=== PATIENT | female | born 1990 | race Caucasian/White ===

== ENCOUNTER 2020-12-07 10:19 | Emergency (ER) | payer MEDICARE, MEDICAID, SELFPAY ==
[2020-12-07 10:35] VITALS: BP 134/78; PULSE 113; RESP 18; TEMP 37.7; O2SAT 98; BMI 46.0
--- NOTE | 2020-12-07 10:44 | W.ED.URI ---
Documented by User: AIDA Persaud 12/07/20 16:27 HPI - URI/Sore Throat General: Chief Complaint: Upper Respiratory Infection Stated Complaint: Cough, Fever, SOB Time Seen by Provider: 12/07/20 10:24 Source: patient and family (sister) Mode of arrival: ambulatory Limitations: other (mentally disabled ) History of Present Illness: HPI Narrative: Patient is a 30-year-old female presents to ED today along with her sister for complaints of cough, congestion, fevers, fatigue, tiredness, decreased appetite, and headache. The sister states she is not very familiar with the patient as the patient is mentally disabled and lives with her mother. Sister tells me the mother unfortunately yesterday of unknown causes. Sister does think the mother was sick as she told her yesterday she did not feel well. The sister tells me that their mother did everything for her including feeding, bathing, administering medications, etc. MD elicited complaint: fever, cough and nasal congestion Onset (ago): day(s) Able to tolerate fluids by mouth: Yes Context: sick contacts Associated symptoms: Reports fever(s), headache(s) and nasal congestion; Deny abdominal pain, chest pain, diarrhea, ear or mastoid pain, nausea or vomiting Review of Systems Const: Reports: fever(s), body aches, change in appetite and fatigue Eyes: Denies: change in vision or blurry vision ENMT: Reports: nasal discharge and nasal congestion; Denies: throat pain, odynophagia, ear or mastoid pain or ear discharge Card: Reports: lightheadedness and pre-syncope; Denies: chest pain, palpitations, irregular heart rhythm, edema or syncope Resp: Reports: dyspnea, non-productive cough and chest congestion; Denies: wheezing or hemoptysis GI: Denies: abdominal pain, nausea, vomiting or diarrhea : Denies: flank pain or dysuria Musc: Denies: neck pain, back pain, extremity pain or joint pain Skin/Breast: Denies: rash Neuro: Reports: headache(s) and dizziness; Denies: numbness in extremities, weakness in extremities or sensory changes Physical Exam Const: COMMON NORMALS: no acute distress and alert EXAM LIMITATIONS: other limitations (patient is mentally disabled ) GENERAL APPEARANCE: cooperative NUTRITIONAL APPEARANCE: obese and other (deconditioned ) ORIENTATION/CONSCIOUSNESS: Yes awake and Yes oriented to person OTHER: at mental baseline per sister HENMT: COMMON NORMALS: normocephalic, atraumatic and Normal external nose present HEAD & SCALP: normal to inspection, normocephalic and atraumatic FACE & SINUS: sinus tenderness NOSE: Normal external nose present OTHER: patient has a severe case of head lice with literally thousands if not millions of nits and live mites; sister states patient was living in horrible conditions and has not bathed or washed her hair in months Eye: GENERAL EYE: appearance normal, both eyes and all related structures Neck/C-Spine: COMMON NORMALS: full ROM, no lymphadenopathy and no meningeal signs Chest: COMMONS NORMALS: normal inspection of the chest and normal palpation of entire chest wall Resp: COMMON NORMALS: normal respiratory effort and clear to auscultation bilaterally AUSCULTATION: clear to auscultation bilaterally Cardio: COMMON NORMALS: regular rhythm RATE: tachycardic RHYTHM: regular rhythm GI: COMMON NORMALS: Normal to inspection, nondistended, normoactive bowel sounds present, Soft to palpation, non-tender, No hepatosplenomegaly present and no masses PALPATION: Yes Soft to palpation and Yes No hepatosplenomegaly present Extremity: COMMON NORMALS: normal to inspection Neuro: KITA COMA SCALE: document GCS findings Pyote coma scale eye opening: Spontaneous Pyote coma scale verbal response: Orientated Pyote coma scale motor response: Obey commands Pyote coma scale total score: 15 COMMON NORMALS: moves all extremities, no focal motor deficits and no sensory deficits noted SENSORIUM/ORIENTATION: Yes alert and Yes oriented to person MENINGEAL SIGNS: Yes no meningeal signs Skin: COMMON NORMALS: no rashes or lesions noted GENERAL SKIN EXAM: no rashes or lesions noted Course Vital Signs: Vital signs: Vital Signs Temperature 100 F H 12/07/20 10:35 Pulse Rate 93 12/07/20 17:01 Respiratory Rate 18 12/07/20 17:01 Blood Pressure 131/62 12/07/20 17:01 Pulse Oximetry 91 12/07/20 17:01 MDM - URI/Sore Throat MDM Narrative: Medical decision making narrative: Patient is a 30-year-old female here with her sister who now has legal guardianship over her after her mother passed. Patient herself is mentally delayed. On exam she is in no acute distress. She has no labored breathing. She did arrive mildly tachycardic with a low-grade fever and mildly hypoxic at 91% thus labs/COVID testing were initially obtained. She is COVID positive. Labs are consistent with her COVID diagnosis and overall are not exceptionally worrisome. CXR showing groundglass densities consistent with COVID. D-dimer was slightly elevated at 1.2 thus CTA imaging obtained which did not show a PE. I have re-evaluated patient countless times and she never appears in any acute distress. Her tachycardia has resolved. She is not tachypneic. She is satting at 95% on RA. Home O2 evaluation completed and patient does not qualify. I think at this time it is reasonable to send patient home with outpatient treatment for COVID. She will be placed on oral dexamethasone. She is set up for MCA infusion tomorrow. She will also be given treatment for her head lice. Lab Data: Labs: Lab Results 12/07/20 12/07/20 12/07/20 11:15 11:15 11:15 WBC 3.9 10^3/uL L 10^ 3/uL (4.0-10.0) RBC 3.92 10^6/uL L 10 ^6/uL (4.1-5.3) Hgb 10.3 g/dL L g/dL (11.5-15.3) Hct 32.9 % L % (37.0-47.0) MCV 83.9 fl fl (81-99) MCH 26.3 pg L pg (28.0-34.0) MCHC 31.3 g/dL g/dL (30.0-36.0) RDW 13.3 % % (12.1-15.1) Plt Count 173 10^3/cmm 10^3 /cmm (130-400) MPV 10.4 fL fL (7.4-10.4) Neut % (Auto) 79.7 % % Lymph % (Auto) 9.6 % % [place] % (Auto) 9.6 % % Eos % (Auto) 0.3 % % Baso % (Auto) 0.3 % % Neut # (Auto) 3.14 10^3/uL 10^3 /uL (1.8-7.7) Lymph # (Auto) 0.4 10^3/uL L 10^ 3/uL (0.8-4.8) [place] # (Auto) 0.4 10^3/uL 10^3/ uL (0.2-0.9) Eos # (Auto) 0.0 10^3/uL 10^3/ uL (0.0-0.8) Baso # (Auto) 0.0 10^3/uL 10^3/ uL (0.0-0.1) Nucleated RBC % (a uto) 0 % % Nucleated RBCs # 0.0 /100WBC /100W BC PT INR APTT Fibrinogen D-Dimer Specimen Type Sample Site ABG pH ABG pCO2 ABG pO2 ABG HCO3 ABG O2 Saturation ABG Base Excess Anthony Test A-a O2 Gradient Hematocrit Hgb O2 Saturation Carboxyhemoglobin Methemoglobin Total Hemoglobin Ionized Calcium O2 Delivery Device FiO2 [employer] ID Sodium 137 mmol/L mmol/L (136-145) Potassium 3.0 mmol/L L mmol /L (3.5-5.1) Chloride 98 mmol/L mmol/L (98-107) Carbon Dioxide 28 mmol/L mmol/L (22-29) Anion Gap 14.0 (5-19) BUN 6 mg/dL mg/dL (6-20) Creatinine 0.6 mg/dL mg/dL (0.5-0.9) GFR Calculation 119.0 mL/min mL/m in (90-130) Glucose 111 mg/dL mg/dL (65-115) Calculated Osmolal ity 282 mOsm/kg L mOs m/kg (285-295) Lactic Acid 2.8 mmol/L H mmol /L (0.5-2.2) Calcium 8.0 mg/dL L mg/dL (8.5-10.5) Ferritin Total Bilirubin 0.2 mg/dL mg/dL (0.15-1.2) AST 38 U/L H U/L (0-32) ALT 16 U/L U/L (0-33) Alkaline Phosphata se 68 IU/L IU/L (35-105) C-Reactive Protein 61.1 mg/L H mg/L (0.0-4.9) Total Protein 6.3 g/dL L g/dL (6.6-8.7) Albumin 3.5 g/dL g/dL (3.5-5.2) Globulin 2.8 g/dL g/dL (1.3-4.6) Procalcitonin 0.12 ng/mL ng/mL (0-0.5) HCG, Qual Urine Color Urine Appearance Urine pH Ur Specific Gravit y Urine Protein Urine Glucose (UA) Urine Ketones Urine Blood Urine Nitrate Urine Bilirubin Urine Urobilinogen Ur Leukocyte Sharmila ase Influenza Type A A g Influenza Type B A g SARS-CoV-2 Ag (Rap id) 12/07/20 12/07/20 12/07/20 11:15 11:17 11:17 WBC RBC Hgb Hct MCV MCH MCHC RDW Plt Count MPV Neut % (Auto) Lymph % (Auto) [place] % (Auto) Eos % (Auto) Baso % (Auto) Neut # (Auto) Lymph # (Auto) [place] # (Auto) Eos # (Auto) Baso # (Auto) Nucleated RBC % (a uto) Nucleated RBCs # PT INR APTT Fibrinogen D-Dimer 1.22 ug/mIFEU H u g/mIFEU (0-0.59) Specimen Type Sample Site ABG pH ABG pCO2 ABG pO2 ABG HCO3 ABG O2 Saturation ABG Base Excess Anthony Test A-a O2 Gradient Hematocrit Hgb O2 Saturation Carboxyhemoglobin Methemoglobin Total Hemoglobin Ionized Calcium O2 Delivery Device FiO2 [employer] ID Sodium Potassium Chloride Carbon Dioxide Anion Gap BUN Creatinine GFR Calculation Glucose Calculated Osmolal ity Lactic Acid Calcium Ferritin Total Bilirubin AST ALT Alkaline Phosphata se C-Reactive Protein Total Protein Albumin Globulin Procalcitonin HCG, Qual Negative (Negative) Urine Color Urine Appearance Urine pH Ur Specific Gravit y Urine Protein Urine Glucose (UA) Urine Ketones Urine Blood Urine Nitrate Urine Bilirubin Urine Urobilinogen Ur Leukocyte Sharmila ase Influenza Type A A g Influenza Type B A g SARS-CoV-2 Ag (Rap id) Positive H (Negative) 12/07/20 12/07/20 12/07/20 11:17 11:17 11:41 WBC RBC Hgb Hct MCV MCH MCHC RDW Plt Count MPV Neut % (Auto) Lymph % (Auto) [place] % (Auto) Eos % (Auto) Baso % (Auto) Neut # (Auto) Lymph # (Auto) [place] # (Auto) Eos # (Auto) Baso # (Auto) Nucleated RBC % (a uto) Nucleated RBCs # PT 13.50 SECONDS SEC ONDS (12.1-14.9) INR 1.00 (0.8-1.2) APTT 32.4 SECONDS SECO NDS (23.9-36.7) Fibrinogen 488 mg/dL mg/dL (174-498) D-Dimer Specimen Type Arterial Sample Site Radial, right ABG pH 7.46 H (7.35-7.45) ABG pCO2 40.2 mmHg mmHg (35-45) ABG pO2 53.8 mmHg L mmHg (80.0-100.0) ABG HCO3 28.5 mmol/L H mmo l/L (22-26) ABG O2 Saturation 91.7 ABG Base Excess 4.3 mmol/L H mmol /L (-2.0-2.0) Anthony Test Pos A-a O2 Gradient 6.1 mmHg mmHg (5-10) Hematocrit 31.1 % L % (37-47) Hgb O2 Saturation 90.5 % L % (95-100) Carboxyhemoglobin 0.9 %THgb %THgb (0.4-20.1) Methemoglobin 0.4 % % (0.4-1.5) Total Hemoglobin 10.1 g/dL L g/dL (12-16) Ionized Calcium 1.1 mmol/L mmol/L (1.1-1.4) O2 Delivery Device Room air FiO2 21.0 % % [employer] ID glc Sodium 136.0 mmol/L mmol /L (131-143) Potassium 3.0 mmol/L L mmol /L (3.5-5.0) Chloride Carbon Dioxide Anion Gap BUN Creatinine GFR Calculation Glucose 133.0 mg/dL H mg/ dL (70-115) Calculated Osmolal ity Lactic Acid Calcium Ferritin 214 ng/mL H ng/mL (15-150) Total Bilirubin AST ALT Alkaline Phosphata se C-Reactive Protein Total Protein Albumin Globulin Procalcitonin HCG, Qual Urine Color Urine Appearance Urine pH Ur Specific Gravit y Urine Protein Urine Glucose (UA) Urine Ketones Urine Blood Urine Nitrate Urine Bilirubin Urine Urobilinogen Ur Leukocyte Sharmila ase Influenza Type A A g Influenza Type B A g SARS-CoV-2 Ag (Rap id) 12/07/20 12/07/20 12:01 12:29 WBC RBC Hgb Hct MCV MCH MCHC RDW Plt Count MPV Neut % (Auto) Lymph % (Auto) [place] % (Auto) Eos % (Auto) Baso % (Auto) Neut # (Auto) Lymph # (Auto) [place] # (Auto) Eos # (Auto) Baso # (Auto) Nucleated RBC % (a uto) Nucleated RBCs # PT INR APTT Fibrinogen D-Dimer Specimen Type Sample Site ABG pH ABG pCO2 ABG pO2 ABG HCO3 ABG O2 Saturation ABG Base Excess Anthony Test A-a O2 Gradient Hematocrit Hgb O2 Saturation Carboxyhemoglobin Methemoglobin Total Hemoglobin Ionized Calcium O2 Delivery Device FiO2 [employer] ID Sodium Potassium Chloride Carbon Dioxide Anion Gap BUN Creatinine GFR Calculation Glucose Calculated Osmolal ity Lactic Acid Calcium Ferritin Total Bilirubin AST ALT Alkaline Phosphata se C-Reactive Protein Total Protein Albumin Globulin Procalcitonin HCG, Qual Urine Color Yellow (Yellow) Urine Appearance Clear (CLEAR) Urine pH 7 (5-7) Ur Specific Gravit y 1.010 (1.005-1.030) Urine Protein Neg (Negative) Urine Glucose (UA) Norm (Normal) Urine Ketones Negative (Negative) Urine Blood Neg (Negative) Urine Nitrate Negative (Negative) Urine Bilirubin Neg (Negative) Urine Urobilinogen Norm mg/dL mg/dL (Negative) Ur Leukocyte Sharmila ase Negative (Negative) Influenza Type A A g Negative (Negative) Influenza Type B A g Negative (Negative) SARS-CoV-2 Ag (Rap id) Imaging Data^: CXR: Radiologist's impression: [address] [id number] ReportSigned Patient: Flex Alexander #: [id number]: [id number]#:[id number]/Sex: 30 / FADM Date: 12/07/20Loc: [facility]/Bed:Attending Dr: Ordering Provider/Ordering MD: Annalise Sorto Date of Service: 12/07/20 Procedure(s): XR chest 1V portable [id number] Accession Number(s): [id number] Report Number: [id number] WS: [id number] XR chest 1V portable [id number] REASON FOR EXAM: URI/fever FINDINGS: Heart and mediastinum are within normal limits. Patchy groundglass density lung opacities in the lower lung roman predominating on the left. Similar findings in the left midlung field peripherally. No significant abnormality of the bony thorax. XR/XR chest 1V portable [id number] IMPRESSION: Infiltrates of unknown chronicity but compatible with acute pneumonitis. Dictated By:Antoni Rosado Jr MDSigned By:Antoni Rosado Jr MDSigned Date/Time:12/07/20 1110DD/ 1108 CTA Chest: Radiologist's impression: [facility] [address] [place] [address] CT Scan Report Signed Patient: Sheridan Alexander Unit #: [id number] : 1990 Age/Sex: 30 / F ADM Date: 12/07/20 Loc: ER Room/Bed: Attending Dr: Ordering Provider/Ordering MD: Annalise Sorto Date of Service: 12/07/20 Procedure(s): CT angio chest PE protcl 30600 Accession Number(s): [id number] Report Number: [id number] WS: [id number] CTA OF THE CHEST WITH PULMONARY EMBOLISM PROTOCOL TECHNIQUE: High-resolution contrast enhanced CTA of the chest with coronal and sagittal reformatted images with pulmonary embolism protocol. MIP images are also reviewed. CLINICAL INFORMATION: suspected COVID, tachycardia, elevated d dimer COMPARISON: None. DLP: 587.[address] scans at [facility] use at least one of these dose optimization techniques: automated exposure control; mA and/or kV adjustment per patient size (includes targeted exams where dose is matched to clinical indication); or iterative reconstruction. FINDINGS: Proximal main pulmonary arteries are normal. Normal segmental pulmonary arteries. Distal most pulmonary arteries not well evaluated due to breathing artifact. No evidence of pulmonary embolus. Normal caliber thoracic aorta. Diffuse bilateral patchy groundglass infiltrates likely due to COVID 19 Pneumonia. This is worse in the left upper lobe, perihilar regions, and both lower lobes. No pleural fluid. Bilateral perihilar bronchovascular thickening. Bilateral perihilar and peribronchial lymphadenopathy likely reactive. Adrenal glands are normal. Small esophageal hiatal hernia. IMPRESSION: 1. No evidence of pulmonary embolus. Low lung volumes. 2. Diffuse bilateral ground glass infiltrates likely due to COVID 19 Pneumonia 3. Bronchovascular thickening with reactive hilar and peribronchial lymphadenopathy. Dictated By: Rocco Torres MD Signed By: Rocco Torres MD Signed Date/Time: 12/07/20 1514 DD/ 1507 Discharge Plan Discharge Patient Disposition: Home Clinical Impression: COVID-19, Head lice Condition: Stable Prescriptions: New permethrin 5 % cream 1 applic topical Q14D Qty: 60 RF: 1 dexamethasone 6 mg tablet 6 mg PO DAILY Qty: 6 RF: 0 Discharge Orders: Discharge ED (Routine); Ordered 12/07/20 Ordered By: Annalise Sorto Patient Instructions: Head Lice Infestation - Adult, COVID-19 (Coronavirus Disease 2019) (ED), How to Recover from COVID-19 at Home (ED) Activity Restrictions/Additional Instructions: As we discussed she is set up for her monoclonal antibody infusion tomorrow at 10 AM. You need to return to the emergency department anytime for increased work of breathing, labored rest breathing, difficulty breathing, severe chest pain, clinical deterioration, inability to care for herself, or any other concerns you may have. You have been given strict instructions on treating her head lice infestation. Coding Level of Care Code ED Manager Telecom for Liane Fwd Exam Comprehensive Monoclonal Antibody - ED Inclusion/Exclusion Criteria age >/= 12 years, weight >/= 40kg /88lbs, symptom onset less than 10 days ago and + direct Sars-Cov-2 test less than 7-10 days ago obesity (BMI >25 or 85%til for age), neurodevelopmental diease and disability (mental) not requiring hospitalization, not requiring oxygen (if not chronically on oxygen) and no increase oxygen requirement (if chronically on oxygen) Patient education patient/family/caregiver received/reviewed fact sheet, Emergency Use Authorization/unapproved drug status discussed with patient/family/caregiver, alternatives to this treatment discussed with patient/family/caregiver, risks and benefits of medication reviewed with patient/family/caregiver, patient/family/caregiver given opportunity for questions, which were answered and patient consents to receiving Monoclonal Antibody Treatment Plan for treatment Meets criteria for Monoclonal Antibody infusion Date of symptom(s) onset: 12/04/20 Where are the positive COVID test results, if positive?: Resulted in [facility] Ordering Monoclonal Antibody infusion for another day (tomorrow 10AM) Documented by User: Pantera Wynne DO 12/07/20 17:22 HPI - URI/Sore Throat General: Chief Complaint: Upper Respiratory Infection Stated Complaint: Cough, Fever, SOB Time Seen by Provider: 12/07/20 10:24 Course Vital Signs: Vital signs: Vital Signs Temperature 100 F H 12/07/20 10:35 Pulse Rate 93 12/07/20 17:01 Respiratory Rate 18 12/07/20 17:01 Blood Pressure 131/62 12/07/20 17:01 Pulse Oximetry 91 12/07/20 17:01 MDM - URI/Sore Throat MDM Narrative: Medical decision making narrative: Chart reviewed agree with assessment and plan Lab Data: Labs: Lab Results 12/07/20 12/07/20 12/07/20 11:15 11:15 11:15 WBC 3.9 10^3/uL L 10^ 3/uL (4.0-10.0) RBC 3.92 10^6/uL L 10 ^6/uL (4.1-5.3) Hgb 10.3 g/dL L g/dL (11.5-15.3) Hct 32.9 % L % (37.0-47.0) MCV 83.9 fl fl (81-99) MCH 26.3 pg L pg (28.0-34.0) MCHC 31.3 g/dL g/dL (30.0-36.0) RDW 13.3 % % (12.1-15.1) Plt Count 173 10^3/cmm 10^3 /cmm (130-400) MPV 10.4 fL fL (7.4-10.4) Neut % (Auto) 79.7 % % Lymph % (Auto) 9.6 % % [place] % (Auto) 9.6 % % Eos % (Auto) 0.3 % % Baso % (Auto) 0.3 % % Neut # (Auto) 3.14 10^3/uL 10^3 /uL (1.8-7.7) Lymph # (Auto) 0.4 10^3/uL L 10^ 3/uL (0.8-4.8) [place] # (Auto) 0.4 10^3/uL 10^3/ uL (0.2-0.9) Eos # (Auto) 0.0 10^3/uL 10^3/ uL (0.0-0.8) Baso # (Auto) 0.0 10^3/uL 10^3/ uL (0.0-0.1) Nucleated RBC % (a uto) 0 % % Nucleated RBCs # 0.0 /100WBC /100W BC PT INR APTT Fibrinogen D-Dimer Specimen Type Sample Site ABG pH ABG pCO2 ABG pO2 ABG HCO3 ABG O2 Saturation ABG Base Excess Anthony Test A-a O2 Gradient Hematocrit Hgb O2 Saturation Carboxyhemoglobin Methemoglobin Total Hemoglobin Ionized Calcium O2 Delivery Device FiO2 [employer] ID Sodium 137 mmol/L mmol/L (136-145) Potassium 3.0 mmol/L L mmol /L (3.5-5.1) Chloride 98 mmol/L mmol/L (98-107) Carbon Dioxide 28 mmol/L mmol/L (22-29) Anion Gap 14.0 (5-19) BUN 6 mg/dL mg/dL (6-20) Creatinine 0.6 mg/dL mg/dL (0.5-0.9) GFR Calculation 119.0 mL/min mL/m in (90-130) Glucose 111 mg/dL mg/dL (65-115) Calculated Osmolal ity 282 mOsm/kg L mOs m/kg (285-295) Lactic Acid 2.8 mmol/L H mmol /L (0.5-2.2) Calcium 8.0 mg/dL L mg/dL (8.5-10.5) Ferritin Total Bilirubin 0.2 mg/dL mg/dL (0.15-1.2) AST 38 U/L H U/L (0-32) ALT 16 U/L U/L (0-33) Alkaline Phosphata se 68 IU/L IU/L (35-105) C-Reactive Protein 61.1 mg/L H mg/L (0.0-4.9) Total Protein 6.3 g/dL L g/dL (6.6-8.7) Albumin 3.5 g/dL g/dL (3.5-5.2) Globulin 2.8 g/dL g/dL (1.3-4.6) Procalcitonin 0.12 ng/mL ng/mL (0-0.5) HCG, Qual Urine Color Urine Appearance Urine pH Ur Specific Gravit y Urine Protein Urine Glucose (UA) Urine Ketones Urine Blood Urine Nitrate Urine Bilirubin Urine Urobilinogen Ur Leukocyte Sharmila ase Influenza Type A A g Influenza Type B A g SARS-CoV-2 Ag (Rap id) 12/07/20 12/07/20 12/07/20 11:15 11:17 11:17 WBC RBC Hgb Hct MCV MCH MCHC RDW Plt Count MPV Neut % (Auto) Lymph % (Auto) [place] % (Auto) Eos % (Auto) Baso % (Auto) Neut # (Auto) Lymph # (Auto) [place] # (Auto) Eos # (Auto) Baso # (Auto) Nucleated RBC % (a uto) Nucleated RBCs # PT INR APTT Fibrinogen D-Dimer 1.22 ug/mIFEU H u g/mIFEU (0-0.59) Specimen Type Sample Site ABG pH ABG pCO2 ABG pO2 ABG HCO3 ABG O2 Saturation ABG Base Excess Anthony Test A-a O2 Gradient Hematocrit Hgb O2 Saturation Carboxyhemoglobin Methemoglobin Total Hemoglobin Ionized Calcium O2 Delivery Device FiO2 [employer] ID Sodium Potassium Chloride Carbon Dioxide Anion Gap BUN Creatinine GFR Calculation Glucose Calculated Osmolal ity Lactic Acid Calcium Ferritin Total Bilirubin AST ALT Alkaline Phosphata se C-Reactive Protein Total Protein Albumin Globulin Procalcitonin HCG, Qual Negative (Negative) Urine Color Urine Appearance Urine pH Ur Specific Gravit y Urine Protein Urine Glucose (UA) Urine Ketones Urine Blood Urine Nitrate Urine Bilirubin Urine Urobilinogen Ur Leukocyte Sharmila ase Influenza Type A A g Influenza Type B A g SARS-CoV-2 Ag (Rap id) Positive H (Negative) 12/07/20 12/07/20 12/07/20 11:17 11:17 11:41 WBC RBC Hgb Hct MCV MCH MCHC RDW Plt Count MPV Neut % (Auto) Lymph % (Auto) [place] % (Auto) Eos % (Auto) Baso % (Auto) Neut # (Auto) Lymph # (Auto) [place] # (Auto) Eos # (Auto) Baso # (Auto) Nucleated RBC % (a uto) Nucleated RBCs # PT 13.50 SECONDS SEC ONDS (12.1-14.9) INR 1.00 (0.8-1.2) APTT 32.4 SECONDS SECO NDS (23.9-36.7) Fibrinogen 488 mg/dL mg/dL (174-498) D-Dimer Specimen Type Arterial Sample Site Radial, right ABG pH 7.46 H (7.35-7.45) ABG pCO2 40.2 mmHg mmHg (35-45) ABG pO2 53.8 mmHg L mmHg (80.0-100.0) ABG HCO3 28.5 mmol/L H mmo l/L (22-26) ABG O2 Saturation 91.7 ABG Base Excess 4.3 mmol/L H mmol /L (-2.0-2.0) Anthony Test Pos A-a O2 Gradient 6.1 mmHg mmHg (5-10) Hematocrit 31.1 % L % (37-47) Hgb O2 Saturation 90.5 % L % (95-100) Carboxyhemoglobin 0.9 %THgb %THgb (0.4-20.1) Methemoglobin 0.4 % % (0.4-1.5) Total Hemoglobin 10.1 g/dL L g/dL (12-16) Ionized Calcium 1.1 mmol/L mmol/L (1.1-1.4) O2 Delivery Device Room air FiO2 21.0 % % [employer] ID glc Sodium 136.0 mmol/L mmol /L (131-143) Potassium 3.0 mmol/L L mmol /L (3.5-5.0) Chloride Carbon Dioxide Anion Gap BUN Creatinine GFR Calculation Glucose 133.0 mg/dL H mg/ dL (70-115) Calculated Osmolal ity Lactic Acid Calcium Ferritin 214 ng/mL H ng/mL (15-150) Total Bilirubin AST ALT Alkaline Phosphata se C-Reactive Protein Total Protein Albumin Globulin Procalcitonin HCG, Qual Urine Color Urine Appearance Urine pH Ur Specific Gravit y Urine Protein Urine Glucose (UA) Urine Ketones Urine Blood Urine Nitrate Urine Bilirubin Urine Urobilinogen Ur Leukocyte Sharmila ase Influenza Type A A g Influenza Type B A g SARS-CoV-2 Ag (Rap id) 12/07/20 12/07/20 12:01 12:29 WBC RBC Hgb Hct MCV MCH MCHC RDW Plt Count MPV Neut % (Auto) Lymph % (Auto) [place] % (Auto) Eos % (Auto) Baso % (Auto) Neut # (Auto) Lymph # (Auto) [place] # (Auto) Eos # (Auto) Baso # (Auto) Nucleated RBC % (a uto) Nucleated RBCs # PT INR APTT Fibrinogen D-Dimer Specimen Type Sample Site ABG pH ABG pCO2 ABG pO2 ABG HCO3 ABG O2 Saturation ABG Base Excess Anthony Test A-a O2 Gradient Hematocrit Hgb O2 Saturation Carboxyhemoglobin Methemoglobin Total Hemoglobin Ionized Calcium O2 Delivery Device FiO2 [employer] ID Sodium Potassium Chloride Carbon Dioxide Anion Gap BUN Creatinine GFR Calculation Glucose Calculated Osmolal ity Lactic Acid Calcium Ferritin Total Bilirubin AST ALT Alkaline Phosphata se C-Reactive Protein Total Protein Albumin Globulin Procalcitonin HCG, Qual Urine Color Yellow (Yellow) Urine Appearance Clear (CLEAR) Urine pH 7 (5-7) Ur Specific Gravit y 1.010 (1.005-1.030) Urine Protein Neg (Negative) Urine Glucose (UA) Norm (Normal) Urine Ketones Negative (Negative) Urine Blood Neg (Negative) Urine Nitrate Negative (Negative) Urine Bilirubin Neg (Negative) Urine Urobilinogen Norm mg/dL mg/dL (Negative) Ur Leukocyte Sharmila ase Negative (Negative) Influenza Type A A g Negative (Negative) Influenza Type B A g Negative (Negative) SARS-CoV-2 Ag (Rap id) Discharge Plan Discharge Patient Disposition: Home Clinical Impression: COVID-19, Head lice Condition: Stable Prescriptions: New permethrin 5 % cream 1 applic topical Q14D Qty: 60 RF: 1 dexamethasone 6 mg tablet 6 mg PO DAILY Qty: 6 RF: 0 Discharge Orders: Discharge ED (Routine); Ordered 12/07/20 Ordered By: Annalise Sorto Patient Instructions: Head Lice Infestation - Adult, COVID-19 (Coronavirus Disease 2019) (ED), How to Recover from COVID-19 at Home (ED) Activity Restrictions/Additional Instructions: As we discussed she is set up for her monoclonal antibody infusion tomorrow at 10 AM. You need to return to the emergency department anytime for increased work of breathing, labored rest breathing, difficulty breathing, severe chest pain, clinical deterioration, inability to care for herself, or any other concerns you may have. You have been given strict instructions on treating her head lice infestation. Coding Level of Care Code ED Manager Telecom for Chg Fwd Exam Comprehensive
--- NOTE | 2020-12-07 10:51 | XR_ITS ---
WS: [id number] XR chest 1V portable [id number] REASON FOR EXAM: URI/fever FINDINGS: Heart and mediastinum are within normal limits. Patchy groundglass density lung opacities in the lower lung roman predominating on the left. Similar findings in the left midlung field peripherally. No significant abnormality of the bony thorax. XR/XR chest 1V portable [id number] IMPRESSION: Infiltrates of unknown chronicity but compatible with acute pneumonitis.
--- NOTE | 2020-12-07 11:04 | ECG_ITS ---
[facility] Test Date: 2020-12-07 Pat Name: Sheridan Alexander Department: Room: Gender: Female Verification Engineer: : 1990 Requested By: Annalise Sorto Order Number: [id number] Payne MD: Zofia Rodriguez M.D. Measurements Intervals [place] Rate: 107 P: 53 TX: 163 QRS: 21 QRSD: 102 T: 48 QT: 319 QTc: 427 Interpretive Statements SINUS TACHYCARDIA No previous ECG available for comparison Electronically Signed On 12-08-2020 9:37:55 CDT by Zofia Rodriguez M.D. [email or web address]
[2020-12-07 11:26] LABS: Basophils % 0.3 %; Eosinophils % 0.3 %; Hematocrit 32.9 % (37.0-47.0); Hemoglobin 10.3 g/dL (11.5-15.3); Lymphocytes # 0.4 10^3/uL (0.8-4.8); Lymphocytes % 9.6 %; Mean Corpuscular HGB Conc 31.3 g/dL (30.0-36.0); Mean Corpuscular Hemoglobin 26.3 pg (28.0-34.0); Mean Corpuscular Volume 83.9 fl (81-99); Mean Platelet Volume 10.4 fL (7.4-10.4); Monocytes # 0.4 10^3/uL (0.2-0.9); Monocytes % 9.6 %; Neutrophils # 3.14 10^3/uL (1.8-7.7); Neutrophils % 79.7 %; Nucleated Red Blood Cells % 0 %; Platelet Count 173 10^3/cmm (130-400); Red Blood Count 3.92 10^6/uL (4.1-5.3); Red Cell Distribution Width 13.3 % (12.1-15.1); White Blood Count 3.9 10^3/uL (4.0-10.0)
[2020-12-07 11:45] LABS: Lactic Sepsis W/Reflex 2.8 mmol/L (0.5-2.2)
[2020-12-07 11:46] LABS: D Dimer 1.22 ug/mIFEU (0-0.59)
[2020-12-07 11:50] LABS: Alanine Aminotransferase 16 U/L (0-33); Albumin Level 3.5 g/dL (3.5-5.2); Alkaline Phosphatase 68 IU/L (35-105); Aspartate Amino Transferase 38 U/L (0-32); Blood Urea Nitrogen 6 mg/dL (6-20); C Reactive Protein 61.1 mg/L (0.0-4.9); Carbon Dioxide 28 mmol/L (22-29); Chloride 98 mmol/L (98-107); Globulin 2.8 g/dL (1.3-4.6); Glucose 111 mg/dL (65-115); Osmolality Calculated 282 mOsm/kg (285-295); Sodium 137 mmol/L (136-145); Total Bilirubin 0.2 mg/dL (0.15-1.2); Total Protein 6.3 g/dL (6.6-8.7)
[2020-12-07 11:51] LABS: ABG PCO2 40.2 mmHg (35-45); ABG PH Result 7.46 (7.35-7.45); Alveolar-Arterial Oxygen Gradi 6.1 mmHg (5-10); Arterial Blood Gas Hematocrit 31.1 % (37-47); Base Excess ABG 4.3 mmol/L (-2.0-2.0); Blood Gas Allen Test Pos; Blood Gas Operator Identificat glc; Blood Gas Sample Site Radial, right; Blood Gas Sample Type Arterial; Carboxyhemoglobin 0.9 %THgb (0.4-20.1); HCO3 ABG 28.5 mmol/L (22-26); HGB O2 Sat 90.5 % (95-100); Ionized Calcium Level - ABG 1.1 mmol/L (1.1-1.4); Methemoglobin 0.4 % (0.4-1.5); Oxygen Device ROOM AIR; Oxygen Saturation ABG 91.7; PO2 ABG 53.8 mmHg (80.0-100.0); Total Hemoglobin 10.1 g/dL (12-16)
--- NOTE | 2020-12-07 11:55 | CT_ITS ---
WS: [id number] CTA OF THE CHEST WITH PULMONARY EMBOLISM PROTOCOL TECHNIQUE: High-resolution contrast enhanced CTA of the chest with coronal and sagittal reformatted i deniss with pulmonary embolism protocol. MIP images are also reviewed. CLINICAL INFORMATION: suspected COVID, tachycardia, elevated d dimer COMPARISON: None. DLP: 587.[address] scans at [facility] use at least one of these dose optimization techniques: automated e xposure control; mA and/or kV adjustment per patient size (includes targeted exams where dose is matc hed to clinical indication); or iterative reconstruction. FINDINGS: Proximal main pulmonary arteries are normal. Normal segmental pulmonary arteries. Distal most pulmona ry arteries not well evaluated due to breathing artifact. No evidence of pulmonary embolus. Normal ca liber thoracic aorta. Diffuse bilateral patchy groundglass infiltrates likely due to COVID 19 Pneumonia. This is worse in t he left upper lobe, perihilar regions, and both lower lobes. No pleural fluid. Bilateral perihilar br onchovascular thickening. Bilateral perihilar and peribronchial lymphadenopathy likely reactive. Adrenal glands are normal. Small esophageal hiatal hernia. IMPRESSION: 1. No evidence of pulmonary embolus. Low lung volumes. 2. Diffuse bilateral ground glass infiltrates likely due to COVID 19 Pneumonia 3. Bronchovascular thickening with reactive hilar and peribronchial lymphadenopathy.
[2020-12-07 11:57] LABS: Procalcitonin 0.12 ng/mL (0-0.5)
[2020-12-07] MEDS: acetaminophen 500 mg Tablet 1000 MG PO (12:05)
[2020-12-07 12:29] LABS: Partial Thromboplastin Time 32.4 SECONDS (23.9-36.7)
[2020-12-07 12:31] VITALS: BP 136/74; PULSE 106; RESP 24; O2SAT 92
[2020-12-07 12:35] LABS: SARS Covid-2 Antigen Positive (Negative)
[2020-12-07 12:41] LABS: Ferritin 214 ng/mL (15-150)
[2020-12-07 12:48] LABS: Add Urine Microscopic? NO; Charge for UA Resulting for Rev
[2020-12-07 12:48] LABS: HCG, Serum Qual Negative (Negative)
[2020-12-07 13:00] LABS: Fibrinogen 488 mg/dL (174-498)
[2020-12-07 13:04] LABS: Influenza A by IFA Negative (Negative); Influenza B by IFA Negative (Negative)
[2020-12-07 13:07] LABS: Bilirubin Urine Neg (Negative); Blood Urine Neg (Negative); Glucose Urine UA Norm (Normal); Ketones Urine Negative (Negative); Leukocyte Esterase Urine Negative (Negative); Nitrate Urine Negative (Negative); Protein Urine Neg (Negative); Urine Appearance Clear (CLEAR); Urine Color Yellow (Yellow); Urobilinogen Urine Norm (Negative); pH Urine 7 (5-7)
[2020-12-07 13:11] LABS: Reflex Lactate Order REFLEX LACTIC ORDERD
[2020-12-07 13:30] VITALS: BP 131/64; PULSE 98; RESP 16; O2SAT 91
[2020-12-07] MEDS: iohexol 350 mg/mL 100 mL Btl IV (14:30)
[2020-12-07 16:09] VITALS: O2SAT 91; O2SAT 96
[2020-12-07 17:01] VITALS: BP 131/62; PULSE 93; RESP 18; O2SAT 91
== END 2020-12-07 17:04 | disposition home or self-care (01) ==
PROVIDERS: Emergency Provider Physician Assistant
DX: U07.1 COVID-19 (principal); B85.0 Pediculosis due to Pediculus humanus capitis
CPT/HCPCS: 36415; 36600; 71045; 71275; 80051; 80053; 81003; 82330; 82728; 82805; 83605; 84145; 84703; 85025; 85378; 85384; 85610; 85730; 86140; 87040; 87426; 87804; 93005; 99284; Q9967

== ENCOUNTER 2020-12-08 12:08 | Outpatient (CLI) | payer MEDICARE, MEDICAID, SELFPAY ==
[2020-12-08 12:12] VITALS: BP 108/73; PULSE 96; RESP 18; TEMP 36.8; O2SAT 96; BMI 30.4
[2020-12-08 12:47] VITALS: BP 98/64; PULSE 80; RESP 15; TEMP 36.9; O2SAT 93
[2020-12-08 13:44] VITALS: BP 93/57; PULSE 78; RESP 18; TEMP 36.6; O2SAT 99
== END 2020-12-08 13:53 | disposition home or self-care (01) ==
LOC: OPS 12:11
PROVIDERS: Visit Provider Physician Assistant
DX: U07.1 COVID-19 (principal)
CPT/HCPCS: 96365

== ENCOUNTER 2021-02-28 10:02 | Emergency (ER) | payer MEDICAID, SELFPAY ==
[2021-02-28 10:34] VITALS: BP 137/92; PULSE 66; RESP 16; TEMP 37.1; O2SAT 97; BMI 22.1
--- NOTE | 2021-02-28 11:14 | W.ED.DENTAL ---
HPI - Dental/Oral General: Chief complaint: General Medical Stated complaint: L EARACHE Time Seen by Provider: 02/28/21 10:52 Source: patient and family Mode of arrival: ambulatory Limitations: other (pt has baseline cognitive delays) History of Present Illness: HPI Narrative: Patient is a 30-year-old female presents to ED today with her sister who is now her legal guardian for concerns of pain to her left ear and dental pain that have been present over the past 2 days. She has not noticed any facial swelling. No ear drainage, tinnitus, or hearing loss. Sister has been trying to get patient into a dentist but because she has adult Medicaid she is having trouble finding somebody who accepts this insurance. MD Complaint: tooth pain Associated symptoms: Reports ear or mastoid pain; Denies fever(s) or odynophagia Review of Systems Const: Denies: fever(s), chills, body aches, fatigue or malaise Eyes: Denies: change in vision, blurry vision or photophobia ENMT: Reports: dental pain and ear or mastoid pain; Denies: throat pain, odynophagia, ear discharge, change in hearing, nasal discharge, nasal congestion, post nasal drip or sinus pain Card: Denies: chest pain Resp: Denies: dyspnea GI: Denies: abdominal pain, nausea or vomiting Musc: Denies: neck pain Skin/Breast: Denies: rash Neuro: Denies: headache(s) [facility] ED PFSH: Medical History (Updated 02/28/21 @ 11:15 by AIDA Persaud) Psychiatric care Female Reproductive History: Date of last menstrual period: 02/07/21 Physical Exam Const: COMMON NORMALS: no acute distress and alert GENERAL APPEARANCE: cooperative NUTRITIONAL APPEARANCE: overweight OTHER: baseline cognitive delays HENMT: COMMON NORMALS: normocephalic, atraumatic and Normal external nose present HEAD & SCALP: normal to inspection, normocephalic and atraumatic FACE & SINUS: normal facial exam NOSE: Normal external nose present TYMPANIC MEMBRANE: TM abnormal TM laterality: right Details: dull, erythematous, fluid behind TM and loss of landmarks MOUTH: Normal oral and palatal mucosa present, lip normal and tongue normal TEETH & GINGIVA: Yes poor dentition and Yes other (pain to L 3rd molar) THROAT: posterior oropharynx normal, tonsils normal and uvula midline Neck/C-Spine: COMMON NORMALS: full ROM, no lymphadenopathy and no meningeal signs Neuro: SENSORIUM/ORIENTATION: Yes alert MENINGEAL SIGNS: Yes no meningeal signs Course Vital Signs: Vital signs: Vital Signs Temperature 98.7 F 02/28/21 10:34 Pulse Rate 66 02/28/21 10:34 Respiratory Rate 16 02/28/21 10:34 Blood Pressure 137/92 02/28/21 10:34 Pulse Oximetry 97 02/28/21 10:34 Discharge Plan Discharge Patient Disposition: Home Clinical Impression: Pain, dental, Acute right otitis media Condition: Stable Prescriptions: New clindamycin HCl 300 mg capsule 300 mg PO Q6H 7 Days Qty: 28 RF: 0 No Action clorazepate dipotassium 7.5 mg tablet 3.75 mg PO BID PRNRF: 0 buspirone 10 mg tablet 10 mg PO BID RF: 0 meloxicam 7.5 mg tablet 7.5 mg PO DAILY RF: 0 Vimpat 200 mg tablet 200 mg PO BID RF: 0 carbamazepine 300 mg capsule, ER multiphase 12 hr 300 mg PO BID RF: 0 permethrin 5 % cream 1 applic topical Q14D Qty: 60 RF: 1 dexamethasone 6 mg tablet 6 mg PO DAILY Qty: 6 RF: 0 Discharge Orders: Discharge ED (Routine); Ordered 02/28/21 Ordered By: Annalise Sorto Patient Instructions: Otitis Media - Adult, Toothache (ED) Coding Level of Care Code ED Passenger Barge Master for Liane Ventura
== END 2021-02-28 12:06 | disposition home or self-care (01) ==
PROVIDERS: Emergency Provider Physician Assistant
DX: H66.91 Otitis media, unspecified, right ear (principal); K08.89 Other specified disorders of teeth and supporting structures
CPT/HCPCS: 99281

== ENCOUNTER → 2021-04-16 13:54 | Outpatient (BNVA) | payer MEDICAID, SELFPAY | PROVIDERS: PCP Nurse Practitioner Family; Referring Provider Nurse Practitioner Family; Visit Provider Surgery | DX: K62.5 Hemorrhage of anus and rectum (principal); Z20.822 Contact with and (suspected) exposure to COVID-19 | CPT/HCPCS: 87635 ==

== ENCOUNTER 2021-04-19 06:02 | Day surgery (SDC) | payer MEDICARE, MEDICAID, SELFPAY ==
[2021-04-19 06:00] LABS: OR HCG Qualitative Urine Negative (Negative)
[2021-04-19 06:21] VITALS: BP 122/85; PULSE 83; RESP 20; TEMP 36.7; O2SAT 97
[2021-04-19] MEDS: sodium chloride 0.9% 1,000 ML 30 ML IV (06:32)
--- NOTE | 2021-04-19 06:58 | ANES.PREANE2 ---
Pre-Anesthetic Assessment Height/Weight: Height 1.6 m Weight 72.575 kg Temp Pulse Resp BP Pulse Ox 98.1 F 83 20 H 122/85 97 04/19/21 06:21 04/19/21 06:21 04/19/21 06:21 04/19/21 06:21 04/19/21 06:21 Preop Diagnosis: Bleeding per rectum/family history of colon cancer Operation Date: 04/19/21 07:30 Proposed Procedures p EGD(Not Applicable) - [place] [address]/BLEEDING PER RECUTM K62.5(Not Applicable) - Nazario Bryan MD Last intake: Intake Last Liquid Date 04/18/21 Last Liquid Time 21:15 Last Solid Date 04/17/21 Last Solid Time 20:00 Social No alcohol and No tobacco Exam alert, oriented x 3, clear to auscultation bilaterally and regular rate & rhythm Airway Submandibular: within normal limits Cervical ROM: within normal limits Mallampati: Class III Dentition: full Pulmonary None reported CV/HEM None reported None reported Hepatic None reported GI Gastroesophageal Reflux Disease Metabolic None reported Musc/skel Lower Back Pain and Osteoarthritis/DJD Neuropsych Depression, Neuropathy and Seizure Anesthetic Plan ASA status: 2 Anesthesia: MAC Medications/Allergies Home Medications Medication Instructions Recorded Confirmed Last Taken Type buspirone 10 mg tablet 10 mg PO BID 01/16/21 04/18/21 04/18/21 History lacosamide 200 mg tablet (Vimpat) 200 mg PO BID 01/16/21 04/18/21 04/19/21 05:00 History meloxicam 7.5 mg tablet 7.5 mg PO DAILY 01/16/21 04/18/21 04/18/21 History clorazepate dipotassium 7.5 mg 15 mg PO BID 04/19/21 04/19/21 04/19/21 05:00 History tablet escitalopram oxalate 10 mg tablet 10 mg PO DAILY 04/19/21 04/19/21 04/18/21 History oxcarbazepine 300 mg tablet 900 mg PO BID 04/19/21 04/19/21 04/19/21 05:00 History Allergies Allergy/AdvReac Type Severity Reaction Status Date / Time Penicillins Allergy ALGY-Anaphy Verified 04/18/21 08:01 laxis Current Medications Generic Name Dose Route Start Last Admin Trade Name Freq PRN Reason Stop Dose Admin Sodium Chloride 1,000 mls @ 30 mls/hr 04/19/21 06:00 04/19/21 06:32 Sodium Chloride 0.9% IV 30 mls/hr .Q24H GABO Administration PFSH Anesthesia Medical History Psychiatric care Family History (Updated 04/16/21 @ 08:15 by Ester Mckoy) Other CAD (coronary artery disease) Cancer Dementia Diabetes Stroke Denies family history of Chronic kidney disease (CKD) Social History Smoking and tobacco status: never smoked Female Reproductive History Date of last menstrual period: 02/07/21 Data Anesthesia Cardiac Studies: No Data to Display
--- NOTE | 2021-04-19 07:44 | W.PM.OPSUD ---
Surgery/Procedure H&P Update DATE OF PROCEDURE: April 19, 2021 DATE H&P PERFORMED: 04/16/21 PREOP DIAGNOSIS: Bleeding per rectum/family history of colon cancer PRIMARY INDICATION FOR PROCEDURE: The same PLANNED PROCEDURE: Operation Date: 04/19/21 07:30 Proposed Procedures p EGD(Not Applicable) - Nazario [place] [address]/BLEEDING PER RECUTM K62.5(Not Applicable) - Nazario Bryan MD
[2021-04-19 08:10] VITALS: BP 119/87; PULSE 78; RESP 18; TEMP 36.3; O2SAT 99
[2021-04-19 08:24] VITALS: BP 140/92; PULSE 67; RESP 16; O2SAT 100
--- NOTE | 2021-04-19 09:28 | P.PCN_ITS ---
PACU note Exam: awake Disposition: discharged
--- NOTE | 2021-04-19 09:28 | PM.PACU ---
PACU note Exam: awake Disposition: discharged
== END 2021-04-19 08:36 | disposition home or self-care (01) ==
PROVIDERS: Anesthesiology; PCP Nurse Practitioner Family; Visit Provider Surgery
PROC: 0DJ08ZZ Inspection of Upper Intestinal Tract, Via Natural or Artificial Opening Endoscopic (ICD-10-PCS; CPT 43235; principal; 2021-04-19 07:30)
PROC: 0DJD8ZZ Inspection of Lower Intestinal Tract, Via Natural or Artificial Opening Endoscopic (ICD-10-PCS; CPT 45378; 2021-04-19 07:30)
DX: K92.1 Melena (principal); Z80.0 Family history of malignant neoplasm of digestive organs; Z82.49 Family history of ischemic heart disease and other diseases of the circulatory system; Z83.3 Family history of diabetes mellitus; Z82.3 Family history of stroke; K57.30 Diverticulosis of large intestine without perforation or abscess without bleeding; K21.00 Gastro-esophageal reflux disease with esophagitis, without bleeding
CPT/HCPCS: 43235; 45378; 81025; 84703; J2704; J7030

== ENCOUNTER 2021-05-02 20:00 | Outpatient (CLI) | payer MEDICARE, MEDICAID, SELFPAY | END 2021-05-02 20:01 | disposition home or self-care (01) | LOC: SLEEP 05-03 06:02 | PROVIDERS: PCP Nurse Practitioner Family; Visit Provider Nurse Practitioner Family | DX: G47.10 Hypersomnia, unspecified (principal) | CPT/HCPCS: 95810 ==

== ENCOUNTER → 2021-05-22 11:25 | Outpatient (BNVA) | payer MEDICARE, MEDICAID, SELFPAY | PROVIDERS: PCP Nurse Practitioner Family; Visit Provider Specialist | DX: G40.909 Epilepsy, unspecified, not intractable, without status epilepticus (principal); G40.109 Localization-related (focal) (partial) symptomatic epilepsy and epileptic syndromes with simple partial seizures, not intractable, without status epilepticus | CPT/HCPCS: 99204; 99205 ==

== ENCOUNTER → 2021-07-16 09:08 | Outpatient (BNVA) | payer MEDICARE, MEDICAID, SELFPAY | PROVIDERS: PCP Nurse Practitioner Family; Visit Provider Specialist | DX: G40.109 Localization-related (focal) (partial) symptomatic epilepsy and epileptic syndromes with simple partial seizures, not intractable, without status epilepticus (principal) | CPT/HCPCS: 95816 ==

== ENCOUNTER → 2021-08-08 13:18 | Outpatient (BNVA) | payer MEDICARE, MEDICAID, SELFPAY | PROVIDERS: PCP Nurse Practitioner Family; Visit Provider Specialist | DX: G40.109 Localization-related (focal) (partial) symptomatic epilepsy and epileptic syndromes with simple partial seizures, not intractable, without status epilepticus (principal) | CPT/HCPCS: 99215 ==

== ENCOUNTER 2021-09-06 14:42 | Inpatient (IN) | payer MEDICARE, MEDICAID, SELFPAY ==
[2021-09-06 14:43] VITALS: BP 133/83; PULSE 73; RESP 16; TEMP 37.2; O2SAT 98
--- NOTE | 2021-09-06 15:18 | ED.C_ITS ---
HPI - Psych General: Chief Complaint: Psychiatric Symptoms Stated Complaint: AMS Time Seen by Provider: 09/06/21 15:13 History of Present Illness: 31-year-old presents with sister. According to sister patient is developmentally delayed but has never had a formal diagnosis. She used to live with her mom who recently . Since she has moved into her sister's house sister states that she has become more aggressive intermittently. The sister is afraid since the patient does not seem to have capacity to understand her actions and get intermittent anger outbursts. The sister is concerned for her own safety as well as that of her children. Patient denies any current anger and states she does not know why she gets angry. She denies any desire to hurt anyone else or herself. Review of Systems Narrative: - CONSTITUTIONAL: Denies weight loss, fever and chills. - HEENT: Denies changes in vision and hearing. - RESPIRATORY: Denies SOB and cough. - CV: Denies palpitations and CP. - GI: Denies abdominal pain, nausea, vomiting and diarrhea. - : Denies dysuria and urinary frequency. - MSK: Denies myalgia and joint pain. - SKIN: Denies rash and pruritus. - NEUROLOGICAL: Denies headache, weakness, numbness and syncope. - PSYCHIATRIC: Denies suicidal ideation PFSH ED PFSH: Medical History Psychiatric care Family History Other CAD (coronary artery disease) Cancer Dementia Diabetes Stroke Denies family history of Chronic kidney disease (CKD) Social History Smoking and tobacco status: never smoked Female Reproductive History: Date of last menstrual period: 02/07/21 Physical Exam Narrative: EXAM NARRATIVE: - GENERAL: Alert and oriented x 3. No acute distress. Well-nourished. - EYES: EOMI. Anicteric. - HENT: Atraumatic, no C-spine tenderness. Moist mucous membranes. No scleral icterus. No cervical lymphadenopathy. - LUNGS: Clear to auscultation bilaterally. No accessory muscle use. Equal lung sounds bilaterally. No respiratory distress. - CARDIOVASCULAR: Regular rate and rhythm. No murmur. No JVD. - ABDOMEN: Soft, non-tender and non-distended. Negative CVA tenderness bilaterally, no rebound or guarding, negative Garcia sign. No palpable masses. - EXTREMITIES: No edema. Non-tender. - SKIN: No rashes or lesions. Warm. - NEUROLOGIC: Sluggish to respond to questions. No meningismus or focal neurological deficits. CN II-XII grossly intact. - PSYCHIATRIC: Cooperative. Appropriate mood and affect. Course Vital Signs: Vital signs: Vital Signs Temperature 98.9 F 09/06/21 14:43 Pulse Rate 73 09/06/21 14:43 Respiratory Rate 16 09/06/21 14:43 Blood Pressure 133/83 09/06/21 14:43 Pulse Oximetry 98 09/06/21 14:43 MDM - Psych Medical Decision Making 31-year-old presents with sister due to uncontrolled aggression. Patient is neurologically intact but does appear sluggish to respond appears to have a level of developmental delay but no formal diagnosis. According to sister her mom refused to get her formally diagnosed before. Discussed with psychiatry and they agreed patient would benefit from admission. Patient admitted in stable condition. Further evaluation management per psychiatry team. Discharge Plan Discharge Condition: Stable Prescriptions: No Action meloxicam 7.5 mg tablet 7.5 mg PO DAILY 0RF Hold Instructions: Resume on 04/24/21. buspirone 10 mg tablet 10 mg PO TID 0RF clorazepate dipotassium 7.5 mg tablet 7.5 mg PO BID 0RF escitalopram oxalate 10 mg tablet 20 mg PO DAILY 0RF Vimpat 200 mg tablet 150 mg PO BID Qty: 60 5RF lorazepam [Lorazepam Intensol] 2 mg/mL concentrate 2 mg PO BID PRN (Reason: seizures) Qty: 30 0RF pantoprazole 40 mg tablet,delayed release (DR/EC) See Rx Instructions .ROUTE .COMPLEX Qty: 90 0RF Dose Instruction: TAKE 1 TABLET BY MOUTH DAILY Rx Instructions: TAKE 1 TABLET BY MOUTH DAILY cenobamate 200 mg tablet 200 mg PO DAILY Qty: 30 5RF oxcarbazepine 300 mg tablet 900 mg PO BID Qty: 60 5RF Referrals: Raza,Huong, CUSTOMER SUPPORT ENGINEER [Primary Care Provider] - Coding Level of Care Code ED Tracing Lathe Set Up Operator for Liane Ventura
[2021-09-06 15:53] VITALS: BP 131/101; RESP 16; O2SAT 99
[2021-09-06 16:03] LABS: Basophils % 0.6 %; Eosinophils # 0.2 10^3/uL (0.0-0.8); Eosinophils % 3.3 %; Hematocrit 38.7 % (37.0-47.0); Hemoglobin 12.1 g/dL (11.5-15.3); Lymphocytes # 1.5 10^3/uL (0.8-4.8); Lymphocytes % 30.7 %; Mean Corpuscular HGB Conc 31.3 g/dL (30.0-36.0); Mean Corpuscular Hemoglobin 27.3 pg (28.0-34.0); Mean Corpuscular Volume 87.2 fl (81-99); Mean Platelet Volume 9.6 fL (7.4-10.4); Monocytes # 0.8 10^3/uL (0.2-0.9); Monocytes % 16.8 %; Neutrophils # 2.37 10^3/uL (1.8-7.7); Neutrophils % 48.4 %; Nucleated Red Blood Cells % 0 %; Platelet Count 226 10^3/cmm (130-400); Red Blood Count 4.44 10^6/uL (4.1-5.3); Red Cell Distribution Width 14.8 % (12.1-15.1); White Blood Count 4.9 10^3/uL (4.0-10.0)
[2021-09-06 16:22] LABS: HCG Qualitative Urine. Negative (Negative); Urine Appearance Cloudy (CLEAR); Urine Color Yellow (Yellow)
[2021-09-06 16:23] LABS: Add Urine Microscopic? YES; Bilirubin Urine 1+ (Negative); Blood Urine 3+ (Negative); Glucose Urine UA Norm (Normal); Ketones Urine 1+ (Negative); Leukocyte Esterase Urine 2+ (Negative); Nitrate Urine Negative (Negative); Protein Urine 1+ (Negative); Specific Gravity, Urine 1.015 (1.005-1.030); Urobilinogen Urine Norm (Negative); pH Urine 5 (5-7)
[2021-09-06 17:03] VITALS: BP 115/79; RESP 16; O2SAT 98
[2021-09-06 17:05] LABS: Alanine Aminotransferase 29 U/L (0-33); Albumin Level 4.1 g/dL (3.5-5.2); Alkaline Phosphatase 109 IU/L (35-105); Anion Gap 16.2 (5-19); Aspartate Amino Transferase 14 U/L (0-32); Blood Urea Nitrogen 14 mg/dL (6-20); Calcium 9.2 mg/dL (8.5-10.5); Carbon Dioxide 27 mmol/L (22-29); Chloride 102 mmol/L (98-107); Creatinine Clr Calc Pharmacy 148.3147; Globulin 3.1 g/dL (1.3-4.6); Glomerular Filtration Rate 118.2 mL/min (90-130); Glucose 89 mg/dL (65-115); Osmolality Calculated 292 mOsm/kg (285-295); Potassium 4.2 mmol/L (3.5-5.1); Sodium 141 mmol/L (136-145); Thyroid Stimulating Hormone 2.92 uIU/mL (0.27-4.20); Total Bilirubin 0.2 mg/dL (0.15-1.2); Total Protein 7.2 g/dL (6.6-8.7)
[2021-09-06 17:06] LABS: Acetaminophen < 5.0 ug/mL (10-30); Alcohol Level < 10 mg/dL (0-10); Salicylate < 0.3 mg/dL (3-10)
[2021-09-06 17:11] LABS: Amphetamines Screen Urine Negative (Negative); Barbiturates Screen Urine Negative (Negative); Benzodiazepines Screen Urine Positive (Negative); Cocaine Screen Urine Negative (Negative); Opiate Screen Urine Negative (Negative); PCP Screen Urine Negative (Negative); THC Screen Urine Negative (Negative)
[2021-09-06 17:30] VITALS: BP 110/75; PULSE 64; RESP 17; TEMP 36.8; O2SAT 99
[2021-09-06 17:30] LABS: RBC Urine TOO NUMEROUS TO CNT /hpf (0-2); WBC Urine 0-4 /hpf (0-5)
[2021-09-06 17:31] LABS: Add Urine Culture? Yes; Bacteria Urine 1+ /hpf; Squamous Epithelial Cell Urine 0-4 /hpf (0-5)
[2021-09-06 20:32] VITALS: BP 118/75; PULSE 85; RESP 16; TEMP 36.7; O2SAT 88
[2021-09-06] MEDS: trazodone 50 mg Tablet PO (21:24)
[2021-09-06 21:39] VITALS: BP 118/75; PULSE 85; RESP 16; TEMP 36.7; O2SAT 90
--- NOTE | 2021-09-07 01:03 | PC.NURSE ---
PRN PT RECEIVED TRAZADONE TO HELP HER SLEEP, PT IS RESTING IN BED.
[2021-09-07 06:00] VITALS: BP 135/74; PULSE 68; RESP 16; TEMP 36.9; O2SAT 98
[2021-09-07] MEDS: BuSPIRONE 10 mg Tablet PO ×3 (09:48→20:12)
[2021-09-07] MEDS: OXcarbazepine 300 mg Tablet 900 MG PO ×2 (09:48→18:07)
[2021-09-07] MEDS: lacosamide 50 mg Tablet 200 MG PO (09:49)
[2021-09-07] MEDS: escitalopram 10 mg Tablet 20 MG PO (09:50)
[2021-09-07] MEDS: meloxicam 7.5 mg tablet PO (09:50)
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
[2021-09-07 13:22] VITALS: BP 106/72; PULSE 85; RESP 20; TEMP 36.8; O2SAT 95
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
[2021-09-07 19:48] VITALS: BP 108/65; PULSE 82; RESP 16; O2SAT 97
[2021-09-07] MEDS: trazodone 50 mg Tablet PO (20:12)
[2021-09-08 06:00] VITALS: BP 112/76; PULSE 66; RESP 18; TEMP 36.4; O2SAT 96
[2021-09-08] MEDS: lacosamide 50 mg Tablet 200 MG PO (08:37)
[2021-09-08] MEDS: escitalopram 10 mg Tablet 20 MG PO (08:37)
[2021-09-08] MEDS: meloxicam 7.5 mg tablet PO (08:37)
[2021-09-08] MEDS: OXcarbazepine 300 mg Tablet 900 MG PO ×2 (08:38→17:50)
[2021-09-08] MEDS: BuSPIRONE 10 mg Tablet PO ×2 (08:38→15:18)
[2021-09-08 13:09] VITALS: BP 114/71; PULSE 81; RESP 16; TEMP 36.9; O2SAT 96
[2021-09-08] MEDS: CLORAZEPATE DIPOTASSIUM 7.5 MG 15 EACH PO ×2 (15:51→20:40)
--- NOTE | 2021-09-08 16:57 | P.NPUPN_ITS ---
Subjective NPU Subjective: Sheridan reports no thoughts of hurting self or others, she reports that she has been feeling depressed, and would be willing to take a new antidepressants. She reports that she may have mild seizure yesterday but reports that he did not appear to be very long. She had endorsed history of an aura associated with her seizure including unusual stomach feelings just prior to the onset of her seizures. She reported that she cannot feel angry at the moment. She had reported in the past blacking out when she became angry. Any thoughts of hurting herself or others at this time. She was compliant and problems in Mental Status Exam MSE Comments: Casually dressed white female, she appeared younger than her stated age, intelligence commensurate with mild cognitive impairment.? She was alert and oriented to person place time and situation.? Her speech showed a clear impediment but it was easier to understand her during the interview.? Her thought process was linear logical and goal-directed.? Her mood was described as depressed.? Her affect appeared mood congruent and restricted in range she denied any and she did not endorse any thoughts of hurting herself or others her impulse control appeared limited. Vitals/I&O/Wt Last Vital Signs Temp 98.4 F 09/08/21 13:09 Pulse 81 09/08/21 13:09 Resp 16 09/08/21 13:09 BP 114/71 09/08/21 13:09 Pulse Ox 96 09/08/21 13:09 Data NPU : 09/06/21 15:50 09/06/21 15:50 Micro: Microbiology 09/06/21 15:56 Urine Culture - Final Urine,Clean Catch Microbiology 09/06/21 15:56 Urine,Clean Catch Urine Culture - Final A&P Assessment and plan (1) Impulse control disorder: Status: Acute (2) Depressive disorder, not elsewhere classified: Status: Acute (3) Temporal lobe epilepsy: Status: Acute (4) Esophagitis: Status: Acute (5) Diverticulosis large intestine w/o perforation or abscess w/bleeding: Status: Acute Plan This is a 31-year-old unmarried white female with temporal lobe epilepsy who has suffered the loss of her manager advertising, her mother, in the last year currently residing with her brother who had been apparently aggressive in the home and does acknowledge suffering from depression. 1.She does not appear to be under guardianship, discussed initiation of zoloft and tapering lexapro to 10mg today. Discontinue Buspar today 2. Encourage? individual, group and milieu therapy 3. Continue q-15 minute check for safety 4. Recommend sober living treatment at the highest level of care to which the patient is willing to commit. Involuntary Hold Information 96 Hour Hold: 96 Hour Involuntary Admission: No Attestations NPU Medical Necessity Statement*: Inpatient hospitalization is medically necessary and the clinically appropriate intervention at this time. We will monitor medications and make changes as indicated. Patient will be in the hospital for over two midnights. Likely length of stay is three to five days. Coding Level of Care Code Established Pt Acute Crop And Soil Technician for Emilyg Fwd Patient Type Established History Problem Focused Exam Problem Focused Medical Decision Making Straight Forward Diagnoses Impulse control disorder F63.9 Depressive disorder, not elsewhere classified F32.89 Temporal lobe epilepsy G40.109 Esophagitis K20.90 Diverticulosis large intestine w/o perforation or abscess w/bleeding K57.31
[2021-09-08 19:28] VITALS: BP 102/65; PULSE 79; RESP 17; TEMP 36.6; O2SAT 98
[2021-09-08] MEDS: trazodone 50 mg Tablet PO (20:41)
--- NOTE | 2021-09-08 21:40 | PC.NURSE ---
50 mg Trazodone PO given for sleep with adequate effectiveness.
[2021-09-09 06:00] VITALS: BP 106/74; PULSE 76; RESP 17; TEMP 36.8; O2SAT 98; BMI 35.6
[2021-09-09] MEDS: CLORAZEPATE DIPOTASSIUM 7.5 MG 15 EACH PO ×2 (08:16→20:17)
[2021-09-09] MEDS: meloxicam 7.5 mg tablet PO (08:16)
[2021-09-09] MEDS: escitalopram 10 mg Tablet PO (08:17)
[2021-09-09] MEDS: OXcarbazepine 300 mg Tablet 900 MG PO ×2 (08:17→20:20)
[2021-09-09] MEDS: sertraline 50 mg Tablet 25 MG PO (08:18)
[2021-09-09] MEDS: lacosamide 50 mg Tablet 200 MG PO (08:18)
--- NOTE | 2021-09-09 11:08 | W.PM.NPUPNS ---
Subjective NPU Subjective: Sheridan reports no thoughts of hurting self or others, she reports that she has been feeling depressed, and wishes to take a different SSRI. No seizures reported as the patient received her Nonformulary anitepileptic agents from sister in law. The patient was unable to elucidate what had happened that had led to her outburst at the home. She reports that she hopes to live with her brother again. She does reports depressed mood still with low energy and reports frequent feelings of sadness. She has been redirectable with no evidence of aggression reported. Mental Status Exam MSE Comments: Casually dressed white female, she appeared younger than her stated age, intelligence commensurate within normal limits. ? She was alert and oriented to person place time and situation.? Her speech showed a clear impediment but it was easier to? understand her during the interview with normal rate. ? Her thought process was linear logical and goal-directed.? Her mood was described as down. ? Her affect appeared mood congruent and restricted in range. She denied any thoughts of hurting herself or others. Her impulse control appeared improved. Vitals/I&O/Wt Last Vital Signs Temp 97.3 F L 09/09/21 14:00 Pulse 70 09/09/21 14:00 Resp 16 09/09/21 14:00 BP 103/67 09/09/21 14:00 Pulse Ox 97 09/09/21 14:00 Weight last 48 hrs Weight 91.172 kg Data NPU : 09/06/21 15:50 09/06/21 15:50 A&P Assessment and plan (1) Impulse control disorder: Status: Acute (2) Depressive disorder, not elsewhere classified: Status: Acute (3) Temporal lobe epilepsy: Status: Acute Plan This is a 31-year-old unmarried white female with temporal lobe epilepsy who has suffered the loss of her management analyst, her mother, in the last year currently residing with her brother who had been apparently aggressive in the home and does acknowledge suffering from depression. 1. Tapering lexapro and increase zoloft to 50mg daily 2. Encourage? individual, group and milieu therapy. Recommend Family meeting to discuss possibility of return home. 3. Continue q-15 minute check for safety 4. Recommend sober living treatment at the highest level of care to which the patient is willing to commit. Involuntary Hold Information 96 Hour Hold: 96 Hour Involuntary Admission: No Attestations NPU Medical Necessity Statement*: Inpatient hospitalization is medically necessary and the clinically appropriate intervention at this time. Coding Level of Care Code Established Pt Acute Medical Insurance Claims Specialist for Emilyg Fwd Patient Type Established History Problem Focused Exam Problem Focused Medical Decision Making Straight Forward Diagnoses Impulse control disorder F63.9 Depressive disorder, not elsewhere classified F32.89 Temporal lobe epilepsy G40.109
[2021-09-09 14:00] VITALS: BP 103/67; PULSE 70; RESP 16; TEMP 36.3; O2SAT 97
[2021-09-09] MEDS: blistex lip oint 7 gm Tube 1 APPLIC TOPICAL (20:24)
[2021-09-09 20:56] VITALS: BP 108/71; PULSE 69; RESP 17; TEMP 36.8; O2SAT 97
[2021-09-10 06:00] VITALS: BP 102/57; PULSE 60; RESP 16; TEMP 36.8; O2SAT 99
[2021-09-10] MEDS: OXcarbazepine 300 mg Tablet 900 MG PO ×2 (09:08→21:10)
[2021-09-10] MEDS: escitalopram 10 mg Tablet PO (09:08)
[2021-09-10] MEDS: sertraline 50 mg Tablet PO (09:08)
[2021-09-10] MEDS: meloxicam 7.5 mg tablet PO (09:08)
[2021-09-10] MEDS: CLORAZEPATE DIPOTASSIUM 7.5 MG 15 EACH PO ×2 (09:09→21:06)
--- NOTE | 2021-09-10 13:44 | W.PM.NPUPNS ---
Subjective NPU Subjective: Sheridan reports no thoughts of hurting self or others, she remained quiet here on the milieu and reports that she does not have any angry thoughts. She reports that she had met with her sister in law and reports that she wishes to return to her brothers home when she is better. ? She reports adequate mood and energy. She denies any feelings of hopelessness. Mental Status Exam MSE Comments: Casually dressed white female, she appeared younger than her stated age, intelligence commensurate within normal limits. ? She was alert and oriented to person place time and situation.? Her speech showed a clear impediment but it was easier to? understand her during the interview with normal rate.? ? Her thought process was linear logical and goal-directed.? Her mood was described as?okay? Her affect appeared mood incongruent and restricted in range. She denied any thoughts of hurting herself or others.? Her impulse control appeared improved.? Vitals/I&O/Wt Last Vital Signs Temp 98.0 F 09/10/21 14:00 Pulse 77 09/10/21 14:00 Resp 16 09/10/21 14:00 BP 119/72 09/10/21 14:00 Pulse Ox 97 09/10/21 14:00 Weight last 48 hrs Weight 91.172 kg Data NPU : 09/06/21 15:50 09/06/21 15:50 A&P Assessment and plan (1) Impulse control disorder: Status: Acute (2) Depressive disorder, not elsewhere classified: Status: Acute (3) Temporal lobe epilepsy: Status: Acute (4) Esophagitis: Status: Acute Plan This is a 31-year-old unmarried white female with temporal lobe epilepsy who has suffered the loss of her cafe aide, her mother, in the last year currently residing with her brother who had been apparently aggressive in the home and does acknowledge suffering from depression. 1. Discontinue lexapro and continue zoloft at 50mg daily 2. Encourage? individual, group and milieu therapy.? Recommend Family meeting to discuss possibility of return home. 3. Continue q-15 minute check for safety 4. Recommend sober living treatment at the highest level of care to which the patient is willing to commit. Involuntary Hold Information 96 Hour Hold: 96 Hour Involuntary Admission: No Attestations NPU Medical Necessity Statement*: Inpatient hospitalization is medically necessary and the clinically appropriate intervention at this time. Likely stay 2-3 days. Coding Level of Care Code Established Pt Acute Ultrasonic Seaming Machine Operator for Chg Fwd Patient Type Established History Problem Focused Exam Problem Focused Medical Decision Making Straight Forward Diagnoses Impulse control disorder F63.9 Depressive disorder, not elsewhere classified F32.89 Temporal lobe epilepsy G40.109 Esophagitis K20.90
[2021-09-10 14:00] VITALS: BP 119/72; PULSE 77; RESP 16; TEMP 36.7; O2SAT 97
[2021-09-10 20:01] VITALS: BP 98/64; PULSE 71; RESP 16; TEMP 37.2; O2SAT 99
[2021-09-10 21:03] VITALS: BP 125/71; PULSE 71; RESP 18; TEMP 36.4; O2SAT 97
[2021-09-11 05:59] VITALS: BP 115/64; PULSE 74; RESP 16; TEMP 36.3; O2SAT 98
[2021-09-11] MEDS: lacosamide 50 mg Tablet 200 MG PO ×2 (09:25→18:01)
[2021-09-11] MEDS: escitalopram 10 mg Tablet PO (09:26)
[2021-09-11] MEDS: meloxicam 7.5 mg tablet PO (09:26)
[2021-09-11] MEDS: OXcarbazepine 300 mg Tablet 900 MG PO ×2 (09:26→20:31)
[2021-09-11] MEDS: sertraline 50 mg Tablet PO (09:26)
[2021-09-11] MEDS: CLORAZEPATE DIPOTASSIUM 7.5 MG 15 EACH PO ×2 (09:27→20:40)
--- NOTE | 2021-09-11 13:08 | W.PM.NPUPNS ---
Subjective NPU Subjective: Anjali was seen on rounds this morning. She reports that she has felt lightheaded at times whenever she gets up. She describes having this problem for several weeks. She has been compliant with her medications with no noted seizure events over the last few days. She had reported that she felt more optimistic about returning home and reported that she had not been feeling as angry. She did report depression but reports not feeling hopeless. She did not endorse any thoughts of hurting herself or others. Staff notes the patient has been compliant and pleasant on the milieu. She had reported adequate sleep and good appetite. Mental Status Exam MSE Comments: Casually dressed white female, she appeared younger than her stated age, intelligence commensurate within normal limits. ? She was alert and oriented to person place time and situation.? Her speech showed a clear impediment but it was easier to? understand her during the interview with normal rate.? ? Her thought process was linear logical and goal-directed.? Her mood was described as?good. ? Her affect appeared mood incongruent and restricted in range. She denied any thoughts of hurting herself or others.? Her impulse control appeared improved.? Vitals/I&O/Wt Last Vital Signs Temp 98.5 F 09/11/21 14:00 Pulse 83 09/11/21 14:00 Resp 20 H 09/11/21 14:00 BP 97/60 09/11/21 14:00 Pulse Ox 97 09/11/21 14:00 Data NPU : 09/06/21 15:50 09/06/21 15:50 A&P Assessment and plan (1) Impulse control disorder: Status: Acute (2) Depressive disorder, not elsewhere classified: Status: Acute (3) Temporal lobe epilepsy: Status: Acute Plan This is a 31-year-old unmarried white female with temporal lobe epilepsy who has suffered the loss of her candy rolling machine operator, her mother, in the last year currently residing with her brother who had been apparently aggressive in the home and does acknowledge suffering from depression. 1. zoloft 75mg in am. 2. Encourage? individual, group and milieu therapy.? Family visit appeared to be good with commitment for patient to likely return home tommorow. 3. Continue q-15 minute check for safety 4. Recommend sober living treatment at the highest level of care to which the patient is willing to commit. Involuntary Hold Information 96 Hour Hold: 96 Hour Involuntary Admission: No Attestations NPU Medical Necessity Statement*: Inpatient hospitalization is medically necessary and the clinically appropriate intervention at this time.? Likely stay 2-3 days.? Coding Level of Care Code Established Pt Acute Filing And Polishing Supervisor for Chg Fwd Patient Type Established History Problem Focused Exam Problem Focused Medical Decision Making Straight Forward Diagnoses Impulse control disorder F63.9 Depressive disorder, not elsewhere classified F32.89 Temporal lobe epilepsy G40.109
[2021-09-11 14:00] VITALS: BP 97/60; PULSE 83; RESP 20; TEMP 36.9; O2SAT 97
[2021-09-11 19:36] VITALS: BP 105/59; PULSE 83; RESP 20; TEMP 36.9; O2SAT 97
[2021-09-11] MEDS: trazodone 50 mg Tablet PO (20:31)
[2021-09-12 06:00] VITALS: BP 92/56; PULSE 74; RESP 14; TEMP 36.6; O2SAT 96
[2021-09-12] MEDS: CLORAZEPATE DIPOTASSIUM 7.5 MG 15 EACH PO (10:39)
[2021-09-12] MEDS: sertraline 50 mg Tablet 75 MG PO (10:40)
[2021-09-12] MEDS: pantoprazole DR 40 mg Tablet PO (10:40)
[2021-09-12] MEDS: meloxicam 7.5 mg tablet PO (10:41)
[2021-09-12] MEDS: OXcarbazepine 300 mg Tablet 900 MG PO (10:41)
--- NOTE | 2021-09-12 11:46 | DCPLANNER ---
IMM completed on 09/12/21 @ 0752. Pt was given a copy of rights and she stated she understood rights.
[2021-09-12 12:23] VITALS: BP 92/56; PULSE 74; RESP 14; TEMP 36.6; O2SAT 96
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
== END 2021-09-12 13:02 | disposition home or self-care (01) | DRG 886 ==
LOC: ER 15:19 → NP 16:29
PROVIDERS: Admitting Provider Psychiatry & Neurology Psychiatry; Emergency Provider Emergency Medicine; PCP Nurse Practitioner Family; Visit Provider Psychiatry & Neurology Psychiatry
DX: F63.9 Impulse disorder, unspecified (principal); G40.109 Localization-related (focal) (partial) symptomatic epilepsy and epileptic syndromes with simple partial seizures, not intractable, without status epilepticus; R62.50 Unspecified lack of expected normal physiological development in childhood; K21.00 Gastro-esophageal reflux disease with esophagitis, without bleeding; Z62.810 Personal history of physical and sexual abuse in childhood; Z63.4 Disappearance and death of family member; Z86.16 Personal history of COVID-19
CPT/HCPCS: 80053; 80306; 80307; 81001; 81025; 84443; 85025; 87086; 97150; 97165; 99285

== ENCOUNTER → 2021-09-19 08:23 | Outpatient (BNVA) | payer MEDICARE, MEDICAID, SELFPAY | PROVIDERS: PCP Nurse Practitioner Family; Visit Provider Specialist | DX: G40.119 Localization-related (focal) (partial) symptomatic epilepsy and epileptic syndromes with simple partial seizures, intractable, without status epilepticus (principal) | CPT/HCPCS: 99214 ==